=== PATIENT | female | born 1940 | race Caucasian/White ===

== ENCOUNTER → 2020-11-30 | Outpatient (CLI) | payer OTHER ==
[~2020-11-30] MED LIST: ASPIRIN EC81 M1 PO; CALCIUM 600 +1 EAC1 PO; DIPHENHYDRAMINE25 M3 PO; DITROPAN XL10 M1 PO; FISH OIL 1,001000 M1 PO; HYDROCODON-ACE1 EAC7 PO; MULTIVITAMINS PO; VERAPAMIL E.R240 M1 PO
== END ==
LOC: LAB 12:35
PROVIDERS: ATTEND Specialist
DX: U07.1 COVID-19 (principal)

== ENCOUNTER → 2021-07-12 | Outpatient (CLI) | payer OTHER | LOC: SJCVC 12:01 | PROVIDERS: ATTEND Internal Medicine | DX: R94.31 Abnormal electrocardiogram [ECG] [EKG] (principal); I44.0 Atrioventricular block, first degree; I11.0 Hypertensive heart disease with heart failure; I50.32 Chronic diastolic (congestive) heart failure; J96.11 Chronic respiratory failure with hypoxia; E78.5 Hyperlipidemia, unspecified; F17.201 Nicotine dependence, unspecified, in remission; Z86.16 Personal history of COVID-19; Z79.82 Long term (current) use of aspirin; Z79.899 Other long term (current) drug therapy ==

== ENCOUNTER → 2021-07-21 | Outpatient (CLI) | payer OTHER | LOC: SJCVCIMAG 08:56 | PROVIDERS: ATTEND Internal Medicine | DX: I08.3 Combined rheumatic disorders of mitral, aortic and tricuspid valves (principal); J44.9 Chronic obstructive pulmonary disease, unspecified; I10 Essential (primary) hypertension; Z86.16 Personal history of COVID-19; Z87.09 Personal history of other diseases of the respiratory system ==

== ENCOUNTER → 2021-07-26 | Outpatient (CLI) | payer OTHER | LOC: CAT 09:47 | PROVIDERS: ATTEND Internal Medicine | DX: R06.02 Shortness of breath (principal); R91.1 Solitary pulmonary nodule; I25.10 Atherosclerotic heart disease of native coronary artery without angina pectoris; R09.02 Hypoxemia; U07.1 COVID-19; R91.8 Other nonspecific abnormal finding of lung field ==